=== PATIENT | male | born 1980 | race African-American/Black ===

== ENCOUNTER 2022-04-22 01:50 | Emergency (ER) | payer SELFPAY ==
[~2022-04-22] VITALS: Ht 182.9 cm; Wt 93.0 kg
[2022-04-22 03:57] VITALS: BP 128/72
== END 2022-04-22 04:36 | disposition home or self-care (01) ==
LOC: ER 01:50
DX: R56.9 Unspecified convulsions (principal); M54.2 Cervicalgia; S01.512A Laceration without foreign body of oral cavity, initial encounter; I10 Essential (primary) hypertension; X58.XXXA Exposure to other specified factors, initial encounter; Y93.89 Activity, other specified; Y92.9 Unspecified place or not applicable
CPT/HCPCS: 72040; 82962; 93005; 99283

== ENCOUNTER 2024-12-31 08:43 | Emergency (ER) | payer SELFPAY ==
[~2024-12-31] VITALS: Ht 180.3 cm; Wt 82.0 kg
[2024-12-31 08:45] VITALS: O2SAT 98
[2024-12-31] MEDS: LEVETIRACETAM 500MG TABLET PO ONE (09:39)
[2024-12-31 10:39] VITALS: BP 122/75; PULSE 62; RESP 20; TEMP 36.8; O2SAT 97
== END 2024-12-31 10:44 | disposition home or self-care (01) ==
LOC: ER 08:43
DX: R56.9 Unspecified convulsions (principal); I10 Essential (primary) hypertension; F10.90 Alcohol use, unspecified, uncomplicated; F12.90 Cannabis use, unspecified, uncomplicated; Y90.9 Presence of alcohol in blood, level not specified
CPT/HCPCS: 99283